=== PATIENT | female | born 1980 | race Caucasian/White ===

== ENCOUNTER 2025-02-20 17:35 | Emergency (ER) | payer OTHER ==
[~2025-02-20] VITALS: Ht 165.1 cm; Wt 65.0 kg
[2025-02-20 17:54] LABS: BASOPHILS 0.7 % (0.1-1.2); EOSINOPHILS 0.5 % (0.7-5.8); HEMATOCRIT 35.8 % (34.1-44.9); HEMOGLOBIN 12.6 g/dL (11.2-15.7); LYMPHOCYTES 35.4 % (19.3-51.7); MCH 34.8 PG (25.6-32.2); MCHC 35.2 g/dL (32.2-35.5); MCV 98.9 fL (79.4-94.8); MONOCYTES 4.8 % (4.7-12.5); NEUTROPHILS 58.3 % (34.0-71.1); PLATELET COUNT 234 K/uL (182-369); RBC 3.62 M/uL (3.93-5.22)
[2025-02-20] MEDS ORDERED: LISINOPRIL40 MG PO (17:55)
[2025-02-20] MEDS ORDERED: AMLODIPINE BES2.5 MG PO (17:56)
[2025-02-20] MEDS ORDERED: SODIUM CHLORIDE 0.9% 500 ML IV ONE (18:00)
[2025-02-20] MEDS ORDERED: ondansetron HCL 4 MG/2 ML VIAL IV ONE (18:00)
[2025-02-20 18:09] LABS: ALBUMIN 3.9 g/dL (3.4-5.0); ALBUMIN/GLOBULIN RATIO 1.15 (1.1-2.4); ANION GAP 13.4 (7-21); BILIRUBIN, TOTAL 0.3 mg/dL (0.2-1.0); BUN/CREATININE RATIO 22.53 (6.0-28.6); CALCIUM 8.7 mg/dL (8.5-10.1); CREATININE, SERUM 0.71 mg/dL (0.55-1.02); MAGNESIUM 1.6 mg/dL (1.8-2.4); POTASSIUM 3.4 mmol/L (3.5-5.1); PROTEIN, TOTAL 7.3 g/dL (6.4-8.2)
[2025-02-20] MEDS ORDERED: KETOROLAC TROMETHAMINE 30 MG/ML VIAL IV ONE (18:15)
[2025-02-20] MEDS ORDERED: diphenhydrAMINE HCL 50 MG/ML VIAL IV ONE (18:45)
[2025-02-20] MEDS ORDERED: SUMAtriptan succinate 6 MG/0.5 ML VIAL SUB-Q ONE (18:45)
[2025-02-20] MEDS ORDERED: PROCHLORPERAZINE EDISYLATE 10 MG/2 ML VIAL IV ONE (18:45)
[2025-02-20 20:05] VITALS: BP 139/99
== END 2025-02-20 20:05 | disposition home or self-care (01) ==
LOC: ED 17:35
PROVIDERS: Emergency Medicine
DX: R51.9 Headache, unspecified (principal); T67.5XXA Heat exhaustion, unspecified, initial encounter; I10 Essential (primary) hypertension; Z79.899 Other long term (current) drug therapy; X58.XXXA Exposure to other specified factors, initial encounter; Y93.53 Activity, golf
CPT/HCPCS: 36415; 80053; 83735; 84703; 85025; 96374; 96375; 99284-25; J0780; J1200; J1885; J2405; J3030; J7040